=== PATIENT | male | born 1985 | race African-American/Black ===

== ENCOUNTER 2016-06-20 07:06 | Emergency (ER) | payer SELFPAY ==
--- NOTE | 2016-06-20 07:41 | ER Document Report ---
Addendum entered and electronically signed by AMANDA CAST 06/20/16 09:29: ED General - General Chief Complaint: Fever Stated Complaint: DIFFICULTY BREATHING Mode of Arrival: Ambulatory Information source: Patient Notes: Patient is a 31-year-old male presenting to the emergency department with complaints of congestion, chills, cough and sore throat. Patient states that his symptoms were onset on Friday. Patient states that it "hurts to breathe." Patient states that his throat hurts when he coughs. Patient states that he has felt warm and cold but does not know of any actual fever. Patient is a smoker. Patient requests for a work note. TRAVEL OUTSIDE OF THE [place] IN LAST 30 DAYS: No - HPI Onset: Other - see HPI note Associated symptoms: Chills, Nonproductive cough, Rhinnorhea, Sore throat Exacerbated by: Coughing - Related Data Allergies/Adverse Reactions: ondansetron [From Zofran (as hydrochloride)] Allergy (Verified 06/20/16 07:15) Penicillins Allergy (Verified 06/20/16 07:15) Past Medical History - General Information source: Patient - Social History Smoking Status: Current Every Day Smoker Chew tobacco use (# tins/day): No Frequency of alcohol use: None Drug Abuse: None Family History: None Patient has suicidal ideation: No Patient has homicidal ideation: No Pulmonary Medical History: Reports: Hx Asthma - In childhood Surgical Hx: Negative Review of Systems - Review of Systems Constitutional: See HPI, Chills EENT: See HPI, Nose congestion, Throat pain Cardiovascular: No symptoms reported Respiratory: See HPI, Cough, Hurts to breathe Gastrointestinal: No symptoms reported Genitourinary: No symptoms reported Male Genitourinary: No symptoms reported Musculoskeletal: No symptoms reported Skin: No symptoms reported Hematologic/Lymphatic: No symptoms reported Neurological/Psychological: No symptoms reported -: Yes All other systems reviewed and negative Physical Exam - Vital signs Vitals: Temp Pulse Resp BP Pulse Ox 98.6 F 105 H 22 H 120/59 L 99 06/20/16 07:10 06/20/16 07:10 06/20/16 07:10 06/20/16 07:10 06/20/16 07:10 Interpretation: Normal - General General appearance: Appears well, Alert - HEENT Head: Normocephalic, Atraumatic Eyes: Normal Pupils: PERRL Nasal: Clear rhinorrhea Mouth/Lips: Normal Mucous membranes: Moist Pharynx: Erythema - Respiratory Respiratory status: No respiratory distress Chest status: Nontender Breath sounds: Productive cough, Wheezing - Course extravascular wheezing, Other - Good air movement Chest palpation: Normal - Cardiovascular Rhythm: Regular Heart sounds: Normal auscultation Murmur: No - Abdominal Inspection: Normal Distension: No distension Bowel sounds: Normal Tenderness: Nontender Organomegaly: No organomegaly - Back Back: Normal, Nontender - Extremities General upper extremity: Normal inspection, Normal ROM, Normal strength General lower extremity: Normal inspection, Normal ROM, Normal strength - Neurological Neuro grossly intact: Yes Cognition: Normal Orientation: AAOx4 [place] Coma Scale Eye Opening: Spontaneous [place] Coma Scale Verbal: Oriented Christoph Coma Scale Motor: Obeys Commands Christoph Coma Scale Total: 15 Speech: Normal - Psychological Associated symptoms: Normal affect, Normal mood - Skin Skin Temperature: Warm Skin Moisture: Dry Scribe Documentation - Scribe Written by Scribe:: Amanda Cast 06/20/16 09:30 acting as scribe for DrSheri:: Phillips Original Note: ED General - General TRAVEL OUTSIDE OF THE [place] IN LAST 30 DAYS: No - General Chief Complaint: Fever Stated Complaint: DIFFICULTY BREATHING - Related Data Allergies/Adverse Reactions: ondansetron [From Zofran (as hydrochloride)] Allergy (Verified 06/20/16 07:15) Penicillins Allergy (Verified 06/20/16 07:15) Past Medical History - Social History Smoking Status: Never Smoker Chew tobacco use (# tins/day): No Frequency of alcohol use: None Drug Abuse: None Family History: Reviewed & Not Pertinent Patient has suicidal ideation: No Patient has homicidal ideation: No Pulmonary Medical History: Reports: Hx Asthma - In childhood Renal/ Medical History: Denies: Hx Peritoneal Dialysis Surgical Hx: Negative Course - Re-evaluation Re-evalutation: 06/20/16 08:48 Patient presents complaining of 4 days of cough, generalized malaise, sore throat, sinus congestion. Says it hurts to cough. He is a smoker. Denies any history of asthma or lung problems. Never had bronchitis before. Patient has had subjective fevers yesterday. The patient's symptoms most consistent with viral URI/bronchitis. Pt is not hypoxic in no acute respiratory distress. Plan to treat for same. We will use steroids and albuterol. We'll have patient follow -up with health Department. (DAMION YUAN) - Vital Signs Vital signs: Temp Pulse Resp BP Pulse Ox 98.6 F 105 H 20 120/59 L 99 06/20/16 07:10 06/20/16 07:10 06/20/16 07:25 06/20/16 07:10 06/20/16 07:10 (AMANDA CAST) (DAMION YUAN) Discharge - Discharge Clinical Impression: Bronchitis, Viral syndrome Condition: Stable Disposition: HOME, SELF-CARE Additional Instructions: Drink plenty fluids to stay well hydrated. Use albuterol inhaler every 4 hours as needed for cough/wheezing. Alternate Tylenol and Motrin for any fever greater than 100.3. Follow-up with health department for ongoing evaluation. Return to emergency department for chest pain, difficult to breathing, or any other worsening or concerning symptoms. Prescriptions: Albuterol Sulfate [Proair HFA Inhalation Aerosol 8.5 gm MDI] 2 puff IH Q4H PRN # 1 mdi PRN Reason: Prednisone [Deltasone 20 mg Tablet] 3 tab PO DAILY 5 Days Forms: Return to Work [facility] - Follow up as needed Scribe Attestation: 06/20/16 08:56 I personally performed the services described in the documentation, reviewed and edited the documentation which was dictated to the scribe in my presence, and it accurately records my words and actions. (DAMION YUAN)
[2016-06-20] MEDS ORDERED: ALBUTEROL SULFATE HFA (90 MCG/PUFF) 8 GM MDI (1 MDI/ER DISP) IH ONE (08:34)
[2016-06-20 09:11] VITALS: BP 115/63
== END 2016-06-20 09:11 | disposition home or self-care (01) ==
LOC: ER 07:06
DX: J40 Bronchitis, not specified as acute or chronic (principal); B34.9 Viral infection, unspecified; R68.83 Chills (without fever); R05 Cough; J02.9 Acute pharyngitis, unspecified; R07.1 Chest pain on breathing; J34.89 Other specified disorders of nose and nasal sinuses; R09.81 Nasal congestion; F17.200 Nicotine dependence, unspecified, uncomplicated; Z88.8 Allergy status to other drugs, medicaments and biological substances; Z88.0 Allergy status to penicillin
CPT/HCPCS: 99283; J3490